=== PATIENT | male | born 1960 | race Caucasian/White ===

== ENCOUNTER 2022-07-26 10:49 | Day surgery (SDC) | payer BC ==
[~2022-07-26 10:49] MED LIST: Lactated Ringers 1,000 ML IV SCH; Lidocaine 1%/Sod Bicarbonate in NS 8.4% 1 ML Syringe IDERM PRN; Sodium Chloride 0.9% 10 ML Syringe FLUSH PRN; Sodium Chloride 0.9% 10 ML Syringe FLUSH SCH
[2022-07-26] MEDS ORDERED: Propofol 200 MG/20 ML SDV ONE ×2 (11:53→13:22)
[2022-07-26] MEDS ORDERED: Midazolam 1 MG/ML 2 ML SDV ONE (12:56)
[2022-07-26] MEDS ORDERED: fentaNYL 100 MCG/2 ML SDV ONE (12:56)
[2022-07-26] MEDS ORDERED: Lidocaine 1% 6 ML ONE (12:57)
== END 2022-07-26 14:26 | disposition home or self-care (01) ==
LOC: JD.SDS 10:49
PROVIDERS: ATTEND Surgery
DX: K92.2 Gastrointestinal hemorrhage, unspecified (principal); N52.9 Male erectile dysfunction, unspecified; E78.5 Hyperlipidemia, unspecified; G47.00 Insomnia, unspecified; F17.220 Nicotine dependence, chewing tobacco, uncomplicated; E55.9 Vitamin D deficiency, unspecified; Z79.899 Other long term (current) drug therapy; Z98.890 Other specified postprocedural states
CPT/HCPCS: 43235; 45378; J2250; J2704; J3010; J7120; 00813